=== PATIENT | female | born 1940 | race Caucasian/White ===

== ENCOUNTER 2022-10-27 09:23 | Day surgery (SDC) | payer OTHER ==
[~2022-10-27] VITALS: Ht 157.5 cm; Wt 86.2 kg
[~2022-10-27 09:23] MED LIST: CEFAZOLIN SOD 1 GM in D5W 50 ML IV ONE
[2022-10-27] MEDS ORDERED: AMLO5TAB4 PO (11:11)
[2022-10-27] MEDS ORDERED: IBUP-1969 PO (11:11)
[2022-10-27] MEDS ORDERED: LIP80 PO (11:11)
[2022-10-27] MEDS ORDERED: ALBMDI INH (11:11)
[2022-10-27] MEDS ORDERED: FLUT1BLS14 INH (11:11)
[2022-10-27] MEDS ORDERED: ALEN10TA25 PO (11:11)
[2022-10-27] MEDS ORDERED: LISI40TA13 PO (11:11)
[2022-10-27] MEDS ORDERED: fentaNYL CITRATE/PF 100 MCG/2 ML AMP ONE (12:18)
[2022-10-27] MEDS ORDERED: BUPIVACAINE /PF 0.25% 30 ML VIAL INJ ONE (12:18)
[2022-10-27] MEDS ORDERED: PROPOFOL 200MG/ 20ML VIAL (DIPRIVAN) IV ONE (12:18)
[2022-10-27] MEDS ORDERED: WATER FOR IRRIGATION,STERILE 1,000 ML IRRIG.SOLN IR ONE (12:18)
[2022-10-27] MEDS ORDERED: HYDROmorphone 2 MG/ML VIAL ONE (12:18)
[2022-10-27] MEDS ORDERED: LR 1,000 ML IV.SOLN IV ONE (12:18)
[2022-10-27] MEDS ORDERED: SUGAMMADEX SODIUM 200 MG/2 ML VIAL IV ONE (12:18)
[2022-10-27] MEDS ORDERED: NS IRRIG SOLN 1000 ML IR ONE (12:18)
[2022-10-27] MEDS ORDERED: ONDANSETRON HCL 4 MG/2 ML VIAL ONE (12:18)
[2022-10-27] MEDS ORDERED: SEVOFLURANE 15 MIN GAS INH ONE (12:18)
[2022-10-27] MEDS ORDERED: MIDAZOLAM HCL 5 MG/5 ML VIAL ONE (12:18)
[2022-10-27] MEDS ORDERED: SUCCINYLCHOLINE CHLORIDE 20 MG/ML(QUELICIN) ONE (12:18)
[2022-10-27] MEDS ORDERED: ACETAMINOPHEN I.V. 1000 MG 100 ML IV ONE (13:20)
[2022-10-27] MEDS ORDERED: ONDANSETRON HCL 4 MG/2 ML VIAL IVP PRN ×2 (13:45→14:15)
[2022-10-27] MEDS ORDERED: HYDROmorphone 1 MG/ML INJ. CARTRIDGE IVP PRN ×2 (13:45→14:15)
[2022-10-27] MEDS ORDERED: ACETAMINOPHEN 325 MG TABLET PO PRN (13:45)
[2022-10-27] MEDS ORDERED: HYDROcodone/ACETAMIN 5-325 MG TAB (NORCO/ VICODIN) PO PRN (13:45)
[2022-10-27 14:30] VITALS: BP_SYST 154
[2022-10-27 14:51] VITALS: BP_SYST 154
[2022-10-27] MEDS: D5/0.45 NS 1,000 ML IV SCH (15:12)
[2022-10-27 16:00] VITALS: BP_SYST 146
[2022-10-27] MEDS: HYDROcodone/ACETAMIN 5-325 MG TAB (NORCO/ VICODIN) PO PRN ×2 (16:25→20:30)
[2022-10-27] MEDS: CEFAZOLIN 1 GM IVPB PREMIX 50 ML IV SCH (17:59)
[2022-10-27 20:00] VITALS: BP_SYST 124
[2022-10-27] MEDS: FAMOTIDINE PF 20 MG/2 ML VIAL IVP SCH (20:21)
[2022-10-28] VITALS: BP_SYST 132
[2022-10-28] MEDS: CEFAZOLIN 1 GM IVPB PREMIX 50 ML IV SCH (03:37)
[2022-10-28] MEDS: HYDROcodone/ACETAMIN 5-325 MG TAB (NORCO/ VICODIN) PO PRN (04:02)
[2022-10-28] MEDS: D5/0.45 NS 1,000 ML IV SCH ×2 (05:45→08:56)
[2022-10-28 08:00] VITALS: BP_SYST 139
[2022-10-28] MEDS: FAMOTIDINE PF 20 MG/2 ML VIAL IVP SCH (08:55)
[2022-10-28] MEDS ORDERED: ENOXAPARIN SODIUM 30 MG/0.3 ML SYRINGE SUBCUT SCH (09:00)
[2022-10-28 09:57] VITALS: BP_SYST 139
[2022-10-28 11:21] VITALS: BP_SYST 140
== END 2022-10-28 12:00 | disposition home or self-care (01) ==
LOC: SDS 09:23 → SMU 09:24 → SDS 10-28 12:00
PROVIDERS: ATTEND Colon & Rectal Surgery
DX: K43.0 Incisional hernia with obstruction, without gangrene (principal); R13.10 Dysphagia, unspecified; I10 Essential (primary) hypertension; J45.909 Unspecified asthma, uncomplicated; E78.5 Hyperlipidemia, unspecified; Z90.49 Acquired absence of other specified parts of digestive tract; Z98.890 Other specified postprocedural states; Z88.5 Allergy status to narcotic agent; Z86.73 Personal history of transient ischemic attack (TIA), and cerebral infarction without residual deficits; M81.0 Age-related osteoporosis without current pathological fracture; Z79.82 Long term (current) use of aspirin; Z79.899 Other long term (current) drug therapy
CPT/HCPCS: 87081; 49616; 88302; J3490 ×4; J0690 ×2; J2405; J2704; J0330; J3010; J1170; J7060; J7120; C1781; J0131; J1650; J2250

== ENCOUNTER 2024-02-01 08:23 | Day surgery (SDC) | payer OTHER ==
[~2024-02-01] VITALS: Ht 154.9 cm; Wt 86.2 kg
[~2024-02-01 08:23] MED LIST changes: +ALBMDI INH; +ALEN10TA25 PO; +AMLO5TAB4 PO; -CEFAZOLIN SOD 1 GM in D5W 50 ML IV ONE; +CEFAZOLIN SOD 2 GM in D5W 50 ML IV ONE; +FLUT1BLS14 INH; +IBUP-1969 PO; +LIP80 PO; +LISI40TA13 PO
[2024-02-01] MEDS ORDERED: LR 1,000 ML IV.SOLN IV ONE (10:20)
[2024-02-01] MEDS ORDERED: ceFAZolin SODIUM 1 GM VIAL ONE (10:20)
[2024-02-01] MEDS ORDERED: METOCLOPRAMIDE HCL 10 MG/2 ML VIAL ONE (10:20)
[2024-02-01] MEDS ORDERED: SUCCINYLCHOLINE CHLORIDE 20 MG/ML(QUELICIN) ONE (10:20)
[2024-02-01] MEDS ORDERED: BUPIVACAINE /PF 0.25% 30 ML VIAL INJ ONE (10:20)
[2024-02-01] MEDS ORDERED: SEVOFLURANE 15 MIN GAS INH ONE (10:20)
[2024-02-01] MEDS ORDERED: NEOSTIGMINE METHYLSULFATE 1 MG/ML, 10 ML VIAL ONE (10:20)
[2024-02-01] MEDS ORDERED: ONDANSETRON HCL 4 MG/2 ML VIAL ONE (10:20)
[2024-02-01] MEDS ORDERED: ROCURONIUM BROMIDE 10 MG/ML (ZEMURON) ONE (10:20)
[2024-02-01] MEDS ORDERED: PROPOFOL 200MG/ 20ML VIAL (DIPRIVAN) IV ONE (10:20)
[2024-02-01] MEDS ORDERED: BUPIVACAINE LIPOSOME/PF 266 MG/20 ML VIAL INFIL ONE ×2 (10:20→11:00)
[2024-02-01] MEDS ORDERED: GLYCOPYRROLATE 0.2 MG/ML VIAL ONE ×2 (10:20)
[2024-02-01] MEDS ORDERED: PHENYLEPHRINE HCL 10 MG/ML VIAL (NEOSYNEPHRINE) ONE (10:20)
[2024-02-01] MEDS ORDERED: NS IRRIG SOLN 1000 ML IR ONE (10:20)
[2024-02-01] MEDS ORDERED: NS 100 ML BAG ONE (10:20)
[2024-02-01] MEDS ORDERED: LIDOCAINE/EPI 2% 1:100000 20 ML VIAL INJ ONE (10:20)
[2024-02-01] MEDS ORDERED: HYDROmorphone 2 MG/ML VIAL ONE (10:30)
[2024-02-01 11:04] VITALS: O2SAT 97
[2024-02-01] MEDS ORDERED: ONDANSETRON HCL 4 MG/2 ML VIAL IVP PRN (11:30)
[2024-02-01] MEDS ORDERED: HYDROmorphone 1 MG/ML INJ. CARTRIDGE IVP PRN (11:30)
[2024-02-01] MEDS ORDERED: MORPHINE 4 MG INJ. 4 MG/ML VIAL IVP PRN ×2 (11:30)
[2024-02-01] MEDS ORDERED: D5/0.45 NS 1,000 ML IV SCH (12:15)
[2024-02-01] MEDS ORDERED: HYDROcodone/ACETAMIN 5-325 MG TAB (NORCO/ VICODIN) PO PRN ×2 (12:15)
[2024-02-01] MEDS ORDERED: hydrALAZINE HCL 20 MG/ML VIAL ONE (13:01)
[2024-02-01 18:40] VITALS: BP_SYST 144; PULSE 87; RESP 17
== END 2024-02-01 16:14 | disposition home or self-care (01) ==
LOC: SDS 08:23 → SMU 08:23 → SDS 16:14
PROVIDERS: ATTEND Colon & Rectal Surgery
DX: K43.0 Incisional hernia with obstruction, without gangrene (principal); K21.9 Gastro-esophageal reflux disease without esophagitis; I10 Essential (primary) hypertension; J45.909 Unspecified asthma, uncomplicated; M19.90 Unspecified osteoarthritis, unspecified site; Z88.5 Allergy status to narcotic agent; Z88.8 Allergy status to other drugs, medicaments and biological substances; Z90.49 Acquired absence of other specified parts of digestive tract
CPT/HCPCS: 87081; 49616; 88302; J2710; C9290; J3490 ×2; J0690; J0360; J2765; J2405; J2704; J0330; J1170; J7060; J7120; C1781